=== PATIENT | female | born 1960 | race Caucasian/White ===

== ENCOUNTER → 2017-07-30 | Outpatient (CLI) | payer OTHER ==
--- NOTE | 2017-07-31 13:54 | MAMMOGRAPHY REPORT ---
BILATERAL DIGITAL SCREENING MAMMOGRAM TOMOSYNTHESIS WITH CAD: 07/30/2017 CLINICAL HISTORY: Routine screening. Patient has no complaints. TECHNIQUE: Breast tomosynthesis in addition to standard 2D mammography was performed. Current study was also evaluated with a Computer Aided Detection (CAD) system. COMPARISON: Comparison is made to exams dated: 06/28/2016 mammogram, 06/23/2015 mammogram, 06/17/2014 ma mmogram, 06/03/2013 mammogram, 06/02/2012 mammogram, and 12/05/2011 mammogram - [facility] BREAST COMPOSITION: There are scattered areas of fibroglandular density in both breasts. FINDINGS: No suspicious masses, calcifications, or areas of architectural distortion are noted in ei ther breast. There has been no significant interval change compared to prior exams. IMPRESSION: ACR BI-RADS CATEGORY 1: NEGATIVE There is no mammographic evidence of malignancy. A 1 year screening mammogram is recommended. The pa tient will receive written notification of the results. Approximately 10% of breast cancers are not detected with mammography. A negative mammographic report should not delay biopsy if a clinically suggestive mass is present. Dianna Jacobson M.D. ah/:07/30/2017 14:09:23 [employer]way Model: Fe HAYNES(Jason)(Don)(BD), [facility] letter sent: Normal 1/2 BI-RADS Code: ACR BI-RADS Category 1: Negative
== END | disposition home or self-care (01) ==
LOC: C.MAMM 10:57
PROVIDERS: ATTEND Obstetrics & Gynecology
DX: Z12.31 Encounter for screening mammogram for malignant neoplasm of breast (principal)

== ENCOUNTER → 2018-02-25 | Outpatient (CLI) | payer OTHER | END | disposition home or self-care (01) | LOC: C.PAPS 13:46 | PROVIDERS: ATTEND Obstetrics & Gynecology | DX: Z12.4 Encounter for screening for malignant neoplasm of cervix (principal) ==

== ENCOUNTER → 2018-05-25 | Outpatient (CLI) | payer OTHER ==
[2018-05-25 16:35] LABS: HEMATOCRIT 44.6 % (37-47); HEMOGLOBIN 14.9 g/dL (12.0-16.0); MEAN CELL VOLUME 87.8 fL (80-100); MEAN CORPUSCULAR HEMOGLOBIN 29.3 pg (25-34); MEAN CORPUSCULAR HGB CONC 33.4 g/dl (32-36); MEAN PLATELET VOLUME 11.1 fL (7.4-10.4); PLATELET COUNT 221 K/uL (130-400); RED CELL DISTRIBUTION WIDTH CV 12.8 % (11.5-14.5); RED CELL DISTRIBUTION WIDTH SD 41.2 fL (36.4-46.3)
[2018-05-25 18:23] LABS: ALBUMIN 3.8 gm/dl (3.4-5.0); ALKALINE PHOSPHATASE 118 U/L (45-117); ALT/SGPT 32 U/L (12-78); AST/SGOT 23 U/L (15-37); BLOOD UREA NITROGEN 20 mg/dl (7-18); CALCIUM 8.8 mg/dl (8.5-10.1); CARBON DIOXIDE 27 mmol/L (21-32); CREATININE 0.83 mg/dl (0.60-1.20); GLUCOSE 73 mg/dl (70-99); POTASSIUM 4.1 mmol/L (3.5-5.1); SODIUM 139 mmol/L (136-145); TOTAL PROTEIN 7.9 gm/dl (6.4-8.2); TRANSFERRIN 281 mg/dl (200-360)
== END | disposition home or self-care (01) ==
LOC: C.LAB1850 15:21
PROVIDERS: ATTEND Psychiatry & Neurology Neurology
DX: G35 Multiple sclerosis (principal); F32.9 Major depressive disorder, single episode, unspecified; E55.9 Vitamin D deficiency, unspecified; G43.109 Migraine with aura, not intractable, without status migrainosus

== ENCOUNTER → 2018-06-08 | Outpatient (CLI) | payer OTHER ==
--- NOTE | 2018-06-08 13:56 | DIAGNOSTIC IMAGING REPORT ---
L-SPINE MIN 4 VIEWS ROUTINE HISTORY: Pain LOWER BACK PAIN COMPARISON: None. FINDINGS: There is no fracture. No subluxation. Disc spaces are preserved. Note is made of a small calcification measuring 2.5 mm overlying the mid pole left kidney. IMPRESSION: Negative lumbar spine. Left renal nephrocalcinosis. The above report was generated using voice recognition software. It may contain grammatical, syntax or spelling errors. Electronically signed by: Lincoln Stanford M.D. 06/08/2018 1:54 PM Dictated Date/Time: 06/08/2018 1:53 PM
--- NOTE | 2018-06-08 13:56 | DIAGNOSTIC IMAGING REPORT ---
SACRUM AND SACROILIAC JOINTS 3 VIEWS CLINICAL HISTORY: Low back pain. FINDINGS: 3 views of the sacrum and sacroiliac joints are correlated with pelvic CT dated 11/11/2011. The skeletal structures are well mineralized. There is no radiographic evidence of fracture. 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 No erosive disease is seen. The hip joints are normal as imaged. No bowel obstruction is identified. 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 Electronically signed by: Christian Doss M.D. 06/08/2018 1:55 PM Dictated Date/Time: 06/08/2018 1:54 PM
== END | disposition home or self-care (01) ==
LOC: C.RAD1850 12:58
PROVIDERS: ATTEND Family Medicine
DX: M16.0 Bilateral primary osteoarthritis of hip (principal); N20.0 Calculus of kidney